=== PATIENT | female | born 1955 ===

== ENCOUNTER 2017-03-06 08:20 | Emergency (ER) | payer MEDICAID ==
[2017-03-06 08:50] VITALS: RESP 16; TEMP 98.9; O2SAT 97; BMI 30.2
[2017-03-06] MEDS ORDERED: cefTRIAXone 1 gm 1 GM/100 ML BAG IVPB STA (09:31)
[2017-03-06] MEDS ORDERED: Oxycodone/Acetaminophen 5/325 mg Tab PO STA (09:33)
[2017-03-06 10:15] LABS: ADD MANUAL DIFF? NO
--- NOTE | 2017-03-06 10:22 | ED PDOC ---
Arrival/HPI - General Chief Complaint: Back Pain Time Seen by Provider: 03/06/17 09:29 Historian: Patient - History of Present Illness Narrative History of Present Illness (Text): 03/06/17 10:18 61-year-old female with a history of diabetes and high blood pressure presents today with a 2 week history of left shoulder pain radiating into the left arm. Patient states over the past few days and that pain has improved and she is noticed severe pain from the wrist into the hand with swelling and erythema. She denies fevers or chills. No chest pain or shortness of breath. She denies numbness weakness or tingling in the extremity. Patient states the wrist and hand have become very painful and worse with movement. Patient describes a throbbing burning pain to the dorsal aspect of the left hand. No medications have been taken for pain at home. No other complaints Past Medical History - Provider Review Nursing Documentation Reviewed: Yes - Travel History Have you recently traveled outside [place] w/in the past 3 mons?: No - Tetanus Immunization Tetanus Immunization: Unknown - Cardiac Hx Cardiac Disorders: Yes Hx Hypertension: Yes - Pulmonary Hx Respiratory Disorders: Yes Hx Asthma: Yes - Neurological Hx Paralysis: No - HEENT Hx HEENT Disorder: No - Renal Hx Renal Disorder: No - Endocrine/Metabolic Hx Endocrine Disorders: Yes Hx Diabetes Mellitus Type 2: Yes - Hematological/Oncological Hx Blood Disorders: No Hx Blood Transfusions: No Hx Blood Transfusion Reaction: No - Integumentary Hx Dermatological Disorder: No - Musculoskeletal/Rheumatological Hx Musculoskeletal Disorders: Yes Hx Back Pain: Yes - Gastrointestinal Hx Gastrointestinal Disorders: No - Genitourinary/Gynecological Hx Genitourinary Disorders: No - Psychiatric Hx Psychophysiologic Disorder: No Hx Emotional Abuse: No Hx Physical Abuse: No Hx Substance Use: No - Anesthesia Hx Anesthesia Reactions: No Hx Malignant Hyperthermia: No - Suicidal Assessment Feels Threatened In Home Enviroment: No Family/Social History - Physician Review Nursing Documentation Reviewed: Yes Family/Social History: Unknown Family HX Smoking Status: Never Smoked Hx Alcohol Use: No Hx Substance Use: No Allergies/Home Meds Allergies/Adverse Reactions: Allergies metoclopramide HCl [From Reglan] Allergy (Severe, Verified 03/06/17 08:47) ANAPHYLAXIS Home Medications: Home Meds Medication Instructions Recorded Confirmed Albuterol HFA [Ventolin HFA 90 2 puff IH [id number] PRN 04/10/16 04/13/16 mcg/actuation (8 g)] Aspirin [Ecotrin] 81 mg PO DAILY 04/10/16 04/10/16 Atorvastatin Calcium [Lipitor] 40 mg PO QAM 04/10/16 04/13/16 Fluticasone/Salmeterol 250/50 1 puff IH BID 04/10/16 04/13/16 [Advair Diskus] Metformin HCl [Glucophage] 1,000 mg PO BID 04/10/16 04/13/16 Montelukast [Singulair] 10 mg PO QPM 04/10/16 04/13/16 Omeprazole [Prilosec] 40 mg PO QPM 04/10/16 04/13/16 SITagliptin [Januvia] 100 mg PO QAM 04/10/16 04/13/16 Valsartan/Hydrochlorothiazide 1 tab PO QAM 04/10/16 04/13/16 [Valsartan and Hydrochlorothiazide 12.5 mg-80 ] Review of Systems - Review of Systems Constitutional: absent: Fatigue, Fevers Respiratory: absent: SOB, Cough Cardiovascular: absent: Chest Pain, Palpitations Gastrointestinal: absent: Abdominal Pain, Nausea, Vomiting Musculoskeletal: Arthralgias. absent: Back Pain, Neck Pain Skin: Rash, Cellulitis Neurological: absent: Headache, Dizziness Physical Exam Vital Signs Reviewed: Yes Vital Signs Temp Pulse Resp BP Pulse Ox 03/06/17 08:42 98.9 F 99 H 16 175/101 H 97 Temperature: Afebrile Blood Pressure: Hypertensive Pulse: Regular Respiratory Rate: Normal Appearance: Positive for: Well-Appearing, Non-Toxic, Comfortable Pain Distress: None Mental Status: Positive for: Alert and Oriented X 3 - Systems Exam Head: Present: Atraumatic Mouth: Present: Moist Mucous Membranes Respiratory/Chest: Present: Clear to Auscultation Cardiovascular: Present: Regular Rate and Rhythm Upper Extremity: Present: NORMAL PULSES, Tenderness (left hand; + erythema, edema and tenderness over dorsal aspect of left hand; + swelling to left wrist; decreased rom of hand and wrist. sensation and distal pulses intact. cap refill <2. ), Swelling, Erythema, Neurovascularly Intact, Capillary Refill < 2s. No: Normal ROM Neurological: Present: GCS=15 Skin: Present: Warm, Dry Psychiatric: Present: Alert Medical Decision Making ED Course and Treatment: 03/06/17 10:20 61-year-old female with left hand pain and swelling/cellulitis CBC wnl CMP wnl xray left hand; no fracture Blood cultures pending Patient was offered admission to the hospital for left hand cellulitis. Patient states that she is unable to stay in the hospital because she has a mentally disabled child at home. I will give the patient first dose of IV antibiotics and will have the patient sign out AGAINST MEDICAL ADVICE and given Rx for Bactrim and Keflex to go home with. The patient was advised that she should be admitted for cellulitis due to the concern for worsening infection loss of limb , sepsis and/or . Patient understands the risks. Rocephin given IV I have again spoken to the patient regarding admission to the hospital for left hand cellulitis. Patient has been advised to not leave the emergency room but has decided to go AGAINST MEDICAL ADVICE. The patient possesses capacity to make decisions and has voiced understanding to all my warnings of potential worsening of the condition for which medical care was sought. I have discussed all known and potential risks and consequences to the patient leaving AGAINST MEDICAL ADVICE. Patient is leaving against medical advise. AMA form signed. witnessed by AURELIA Pérez Will give the patient a prescription for Bactrim and Keflex. She is to follow- up with her PMD and return immediately if she chooses to continue her care patient is aware of the risk of , disability, worsening of symptoms, sepsis , loss of limb. Impression: Cellulitis of the hand Bactrim 1 tablet twice daily 7 days Keflex 1 capsule 4 times daily 7 days Follow-up with a primary care physician tomorrow return immediately if you wish to continue your care - Lab Interpretations Lab Results: 03/06/17 10:13 03/06/17 10:13 Lab Results 03/06/17 10:13: WBC 10.2, RBC 4.41, Hgb 12.8, Hct 38.5, MCV 87.3, MCH 29.0, MCHC 33.2, RDW 14.7 H, Plt Count 321, MPV 9.3, Gran % 65.6, Lymph % (Auto) 24.3 , Platte % (Auto) 5.4, Eos % (Auto) 4.5, Baso % (Auto) 0.2, Gran # 6.66 H, Lymph # 2.5, Platte # 0.6, Eos # 0.5, Baso # 0.02 03/06/17 10:13: Sodium 141, Potassium 3.9, Chloride 104, Carbon Dioxide 27, Anion Gap 14, BUN 8, Creatinine 0.5, Est GFR ( Amer) > 60, Est GFR (Non- Af Amer) > 60, Random Glucose 95, Calcium 10.4, Total Bilirubin 0.6, AST 47 H, ALT 45, Alkaline Phosphatase 88, Total Protein 8.8 H, Albumin 4.6, Globulin 4.2 , Albumin/Globulin Ratio 1.1 - RAD Interpretation Radiology Orders: 03/06/17 09:30 HAND LEFT 3 VIEWS ROUTINE [RAD] Stat - Medication Orders Current Medication Orders: Discontinued Medications Ceftriaxone Sodium (Rocephin 1 Gram Ivpb) 1 gm in 100 mls @ 200 mls/hr IVPB STAT STA PRN Reason: Protocol Stop: 03/06/17 10:00 Last Admin: 03/06/17 09:45 Dose: 200 mls/hr Oxycodone/Acetaminophen (Percocet 5/325 Mg Tab) 1 tab PO STAT STA Stop: 03/06/17 09:34 Last Admin: 03/06/17 09:45 Dose: 1 tab Disposition/Present on Arrival - Present on Arrival Any Indicators Present on Arrival: No History of DVT/PE: No History of Uncontrolled Diabetes: No Urinary Catheter: No History of Decub. Ulcer: No History Surgical Site Infection Following: None - Disposition Have Diagnosis and Disposition been Completed?: Yes Diagnosis: Cellulitis of hand Disposition: AGAINST MEDICAL ADVICE Disposition Time: 12:34 Patient Plan: Other (AMA) Condition: FAIR Discharge Instructions (ExitCare): Cellulitis (ED) Additional Instructions: Bactrim 1 tablet twice daily 7 days Keflex 1 capsule 4 times daily 7 days Follow-up with a primary care physician tomorrow return immediately if you wish to continue your care Prescriptions: Cephalexin [Keflex] 500 mg PO QID #28 capsule Sulfamethoxazole/Trimethoprim [Bactrim DS 800 mg-160 mg] 1 tab PO BID #14 tab Referrals: Kylah Jc MD [Primary Care Provider] - Follow up with primary
[2017-03-06 10:32] LABS: BASO # 0.02 K/mm3 (0.0-2.0); BASO % 0.2 % (0.0-3.0); EOS # 0.5 (0.0-0.7); EOS % 4.5 % (1.5-5.0); GRAN # 6.66 (1.4-6.5); GRAN % 65.6 % (50.0-68.0); HEMATOCRIT 38.5 % (36.0-48.0); LYMPH # 2.5 (1.2-3.4); LYMPH % 24.3 % (22.0-35.0); MEAN CELL VOLUME 87.3 fL (80.0-105.0); MEAN CORPUSCULAR HGB CONC 33.2 g/dl (31.0-37.0); MEAN PLATELET VOLUME 9.3 fl (7.0-11.0); MONO # 0.6 (0.1-0.6); MONO % 5.4 % (1.0-6.0); PLATELET COUNT 321 10^3/uL (120.0-450.0); RED CELL DISTRIBUTION WIDTH 14.7 % (11.5-14.5); WHITE BLOOD COUNT 10.2 10^3/ul (4.5-11.0)
[2017-03-06 10:34] LABS: ALB/GLOB RATIO 1.1 (1.1-1.8); ALKALINE PHOSPHATASE 88 U/L (38-133); ALT/SGPT 45 U/L (7-56); AST/SGOT 47 U/L (15-39); BILIRUBIN,TOTAL 0.6 mg/dL (0.2-1.3); BLOOD UREA NITROGEN 8 mg/dL (7-21); CALCIUM 10.4 mg/dL (8.4-10.5); CARBON DIOXIDE 27 mmol/L (21-33); CHLORIDE 104 mmol/L (95-110); GFR AFRICAN-AMERICAN > 60; GLUCOSE,RANDOM 95 mg/dL (70-110); POTASSIUM 3.9 mmol/L (3.6-5.0); SODIUM 141 mmol/L (132-148); TOTAL PROTEIN 8.8 g/dL (5.8-8.3)
[2017-03-06 12:46] VITALS: BP 159/94
[2017-03-06 12:47] VITALS: PULSE 73
--- NOTE | 2017-03-06 13:33 | RAD ---
PROCEDURE: Left Hand Radiographs. HISTORY: pain/swelling/erythema dorsal hand COMPARISON: None. FINDINGS: BONES: Normal. No fracture. JOINTS: Chondrocalcinosis of the triangular fibrocartilage complex. SOFT TISSUES: Normal. OTHER FINDINGS: None. IMPRESSION: Chondrocalcinosis of the triangular fibrocartilage complex.
== END 2017-03-06 12:57 | disposition left against medical advice (07) ==
LOC: ED 08:20
DX: I10 Essential (primary) hypertension (principal); E11.9 Type 2 diabetes mellitus without complications; L03.114 Cellulitis of left upper limb
CPT/HCPCS: 73130; 80053; 85025; 87040; 96365; 99284; J0696

== ENCOUNTER 2018-02-04 06:10 | Day surgery (SDC) | payer MEDICAID ==
[2018-01-14 11:28] VITALS: BMI 30.9
[2018-02-04] MEDS ORDERED: Lidocaine 2% Inj (20ml) ONE (06:35)
[2018-02-04] MEDS ORDERED: Phenylephrine 10 mg/ml Inj ONE (06:36)
[2018-02-04] MEDS ORDERED: Nitroglycerin 50mg in D5W 0 MG/0 ML BOTTLE IV ONE (06:36)
[2018-02-04] MEDS ORDERED: Iodixanol 320 MG/ML 100 ML BOTTLE IV ONE (06:39)
[2018-02-04] MEDS ORDERED: Iohexol 350mgl/ml 50 ML ONE (06:39)
[2018-02-04] MEDS ORDERED: Iodixanol 320 MG/ML 200 ML BOTTLE IV ONE (06:40)
[2018-02-04 06:48] VITALS: RESP 18
[2018-02-04] MEDS ORDERED: Midazolam 2 MG/2 ML VIAL ONE ×2 (07:32→07:59)
[2018-02-04] MEDS ORDERED: Potassium Chloride 20 mEq ER Tab PO ONE (07:40)
[2018-02-04] MEDS ORDERED: Sodium Chloride 0.9% 1,000 ML IV SCH (08:45)
[2018-02-04 09:09] VITALS: TEMP 97.4
--- NOTE | 2018-02-04 10:24 | CARDCATH ---
PROCEDURE DATE: 02/04/2018 HISTORY: The patient is a 62-year-old woman, who presents with recurrence of angina. She suffers from hypertension, diabetes mellitus, hypercholesterolemia, sedentary lifestyle. She underwent a stress test, which showed ischemic areas. Because of this, cardiac catheterization was recommended. PROCEDURE: Left heart catheterization with coronary arteriography and left ventriculogram. The right femoral artery was cannulated with a 6-Dutch sheath. There were no complications. I performed moderate sedation, which included the presence of an independent trained observer, which assisted in monitoring the patient's level of consciousness and physiologic status. After administration of Versed and fentanyl, my intra service time was 15 minutes. The findings on catheterization revealed a normal LV function with an EF of 60%. Her coronary anatomy revealed a right dominant circulation. The RCA revealed intimal irregularities without significant stenoses. The left main artery was unremarkable. The LAD and diagonal vessels were free of significant disease. The circumflex artery and obtuse marginal branches revealed intimal irregularities without significant stenoses. Angio-Seal was used to close the femoral artery site. The patient tolerated the procedure well. In summary, the procedure revealed normal LV function. Atherosclerosis in the coronary tree with no critical lesions throughout her coronary tree. Given these findings, the patient was started cardiac risk reduction program, which includes an exercise program. I have enrolled her in the cardiac rehab phase III program. Elias Gentile MD
[2018-02-04 10:54] VITALS: O2SAT 97
[2018-02-04 12:15] VITALS: BP 159/91; PULSE 84
== END 2018-02-04 13:45 | disposition home or self-care (01) ==
LOC: CATH 06:10
PROVIDERS: ATTEND Internal Medicine Cardiovascular Disease
DX: I25.10 Atherosclerotic heart disease of native coronary artery without angina pectoris (principal); E78.00 Pure hypercholesterolemia, unspecified; E11.9 Type 2 diabetes mellitus without complications; I10 Essential (primary) hypertension
CPT/HCPCS: 93458; 99152; C1760; C1769; C1887; C2629; J1644; J2250; J3010; J7040; Q9966

== ENCOUNTER → 2019-03-07 | Outpatient (CLI) | payer MEDICAID | LOC: RAD 09:12 ==